=== PATIENT | female | born 1990 | race Caucasian/White ===

== ENCOUNTER 2017-10-30 13:32 | Emergency (ER) | payer BC, MEDICAID ==
[~2017-10-30] VITALS: Ht 167.6 cm; Wt 59.0 kg
[2017-10-30 13:32] VITALS: BP_SYST 125
[~2017-10-30 13:32] MED LIST: ALBU17AE13 IH; MONT10TA22 PO
[2017-10-30 14:54] LABS: BASOPHILS # (AUTO) 0.2 K/uL (0.0-0.2); BASOPHILS % (AUTO) 1.2 % (0.0-2.0); EOSINOPHILS # (AUTO) 0.1 K/uL (0.0-0.4); EOSINOPHILS % (AUTO) 0.5 % (0.0-4.0); HEMATOCRIT 45.2 % (36-48); HEMOGLOBIN 15.1 g/dL (12.0-16.0); LYMPHOCYTES # (AUTO) 1.3 K/uL (1.0-5.5); LYMPHOCYTES % (AUTO) 8.8 % (20.5-51.5); MEAN CORPUSCULAR HEMOGLOBIN 30 pg (27-31); MEAN CORPUSCULAR HGB CONC 33 % (32-36); MEAN CORPUSCULAR VOLUME 89 fL (79.0-98.0); MONOCYTES # (AUTO) 0.8 K/uL (0.0-1.0); MONOCYTES % (AUTO) 5.4 % (1.7-9.3); NEUTROPHILS # (AUTO) 11.9 K/uL (1.8-7.7); NEUTROPHILS % (AUTO) 84.1 % (40.0-70.0); PLATELET COUNT (AUTO) 284 K/uL (130-430); RED BLOOD CELL COUNT(AUTO) 5.09 MIL/uL (4.2-6.2); RED CELL DISTRIBUTION WIDTH 12.4 % (9.0-15.0); WHITE BLOOD COUNT (AUTO) 14.3 K/uL (4.8-10.8)
[2017-10-30 15:13] LABS: CREATININE 0.67 mg/dL (0.55-1.30); POTASSIUM 3.7 mmol/L (3.5-5.1)
--- NOTE | 2017-10-30 15:16 | NUR ---
Patient to ER bed 07 to gown for evaluation. Side rails up. will assume care.
--- NOTE | 2017-10-30 15:17 | NUR ---
Patient brought in by self complaining of left upper quadrant pain starting this morning. Describes the pain as intermittent and sharp 10/10 . Denies any nausea, vomiting and diarrhea. No other complaints/injuries per patient or as noted. Will continue to monitor
[2017-10-30 15:38] LABS: BILIRUBIN,URINE NEGATIVE (NEGATIVE); BLOOD, URINE NEGATIVE (NEGATIVE); CLARITY/URINE CLEAR (CLEAR); COLOR,URINE YELLOW (YELLOW); GLUCOSE,URINE NEGATIVE (NEGATIVE); KETONES,URINE NEGATIVE (NEGATIVE); LEUKOCYTE ESTERASE ,URINE NEGATIVE (NEGATIVE); NITRITE, URINE NEGATIVE (NEGATIVE); PH,URINE 8.5 (5.0-8.0); PROTEIN URINE NEGATIVE (NEGATIVE); UROBILINOGEN,URINE 0.2 (0.2-1.0)
[2017-10-30 15:38] LABS: ALBUMIN 4.3 g/dL (3.4-4.8); TOTAL BILIRUBIN 1.1 mg/dL (0.0-1.0)
--- NOTE | 2017-10-30 15:59 | NUR ---
ER at bedside examining patient.
[2017-10-30] MEDS ORDERED: MAG HYDROX/AL HYDROX/SIMETH 30 ML, LIDOCAINE VISCOUS 2% 15ML (PO) 10 ML, BELLADONNA ALK... PO ONE ×3 (16:00)
[2017-10-30 16:34] VITALS: BP_SYST 125
--- NOTE | 2017-10-30 16:34 | NUR ---
Patient given written and verbal discharge instructions and verbalizes understanding. ER MD discussed with patient the results and treatment provided. Patient in stable condition. ID arm band removed. No Rx given. Patient educated on pain management and to follow up with PMD in 2-3 days. Pain Scale 0/10 Opportunity for questions provided and answered.
== END 2017-10-30 16:34 | disposition home or self-care (01) ==
LOC: SED 13:32
DX: O26.891 Other specified pregnancy related conditions, first trimester (principal); R10.12 Left upper quadrant pain; R42 Dizziness and giddiness; J45.909 Unspecified asthma, uncomplicated; F17.200 Nicotine dependence, unspecified, uncomplicated; Z3A.01 Less than 8 weeks gestation of pregnancy; Z85.41 Personal history of malignant neoplasm of cervix uteri
CPT/HCPCS: 36415; 76801; 76817; 80053; 81003; 81025; 83690; 84702; 85025; 86900; 86901; 99285; J2001

== ENCOUNTER 2019-07-18 18:39 | Emergency (ER) | payer MEDICAID ==
[~2019-07-18] VITALS: Ht 167.6 cm; Wt 66.2 kg
[2019-07-18 19:05] VITALS: BP_SYST 101
--- NOTE | 2019-07-18 19:05 | NUR ---
Patient triaged and placed in waiting room. VSS and patient appears in no acute distress at this time. Accompanied by FAM MEMBER, awaiting available bed, and MD notified of need for MSE.
--- NOTE | 2019-07-18 19:48 | NUR ---
Patient to ER bed 2 to gown for evaluation. Side rails up. Report given to JAMSHID CLEVELAND RN(REGISTRY).
[2019-07-18] MEDS ORDERED: MORPHINE 4 MG/ML INJ. SYRINGE IM ONE (20:00)
--- NOTE | 2019-07-18 20:54 | NUR ---
SEEN AND EXAMINED BY DR. PATEL @ 2000. NEW ORDERS WRITTEN AND CARRIED OUT.
[2019-07-18 21:05] VITALS: BP_SYST 101
== END 2019-07-18 20:57 | disposition home or self-care (01) ==
LOC: SED 18:39
DX: S13.4XXA Sprain of ligaments of cervical spine, initial encounter (principal); S09.8XXA Other specified injuries of head, initial encounter; J45.909 Unspecified asthma, uncomplicated; F17.200 Nicotine dependence, unspecified, uncomplicated; W19.XXXA Unspecified fall, initial encounter; Y93.89 Activity, other specified; Y92.89 Other specified places as the place of occurrence of the external cause; Y99.8 Other external cause status
CPT/HCPCS: 96372; 99283; J2270

== ENCOUNTER 2021-10-07 21:17 | Emergency (ER) | payer MEDICAID ==
[~2021-10-07] VITALS: Ht 167.6 cm; Wt 63.5 kg
[2021-10-07 21:55] VITALS: BP_SYST 111
--- NOTE | 2021-10-07 22:02 | NUR ---
Patient triaged and placed in waiting room. VSS and patient appears in no acute distress at this time. Accompanied by FAMILY, awaiting available bed, and MD notified of need for MSE.
--- NOTE | 2021-10-07 22:22 | NUR ---
DR. MENJIVAR IN TRIAGE FOR MSE
--- NOTE | 2021-10-07 22:22 | NUR ---
Patient c/o left ear pain x3 days with serosanguineous drainage and pain. Patient also reports hearing changes including sound like she is underwater. She has pain with chewing. She denies any fever. She is tolerating food no nausea or vomiting. The onset of her ear pain was preceded by a viral illness like nasal congestion rhinorrhea and cough. Her has similar symptoms. Patient breathing easy, not in any distress.
[2021-10-07] MEDS ORDERED: HYDROcodone/ACETAMIN 10-325 MG TAB PO ONE (22:30)
[2021-10-07] MEDS ORDERED: IBUP-1969 PO (22:34)
[2021-10-07] MEDS ORDERED: CORTEARS LEFT EAR (22:34)
[2021-10-07 23:20] VITALS: BP_SYST 110
--- NOTE | 2021-10-07 23:20 | NUR ---
Patient given written and verbal discharge instructions and verbalizes understanding. ER MD discussed with patient the treatment provided. Patient in stable condition.Rx of Cortisporin ear drops and Ibuprofen tab sent to pharmacy of choice.Patient educated on pain management and to follow up with PMD. Pain Scale 5/10 Opportunity for questions provided and answered.
[2021-10-08] MEDS ORDERED: HYDR-3917 PO (04:12)
== END 2021-10-07 23:20 | disposition home or self-care (01) ==
LOC: SED 21:17
DX: H60.502 Unspecified acute noninfective otitis externa, left ear (principal); B34.9 Viral infection, unspecified; J45.909 Unspecified asthma, uncomplicated
CPT/HCPCS: 99282; 99283

== ENCOUNTER 2021-10-09 00:57 | Emergency (ER) | payer MEDICAID ==
[~2021-10-09] VITALS: Ht 167.6 cm; Wt 62.6 kg
[~2021-10-09 00:57] MED LIST changes: +CORTEARS LEFT EAR; +IBUP-1969 PO
[2021-10-09 01:18] VITALS: BP_SYST 114
[2021-10-09] MEDS ORDERED: NEOMYCIN/POLYMYX B/HYDROCORTISONE 10 ML OTIC SOLUTION OT ONE (01:45)
[2021-10-09] MEDS ORDERED: KETOROLAC TROMETHAMINE 60 MG/2 ML VIAL IM ONE ×2 (01:45→01:52)
[2021-10-09] MEDS ORDERED: NEOMYCIN/POLYMYX B/HYDROCORTISONE 10 ML EAR DROPS.SUSP OT ONE (01:51)
[2021-10-09] MEDS ORDERED: cefTRIAXone 1 GM VIAL ONE (01:55)
[2021-10-09] MEDS ORDERED: LIDOCAINE 1%, 20 ML MDV 20 ML ONE (01:57)
[2021-10-09] MEDS ORDERED: cefTRIAXone 1 GM in LIDOCAINE 1%, 20 ML MDV 2.1 ML IM ONE (02:00)
[2021-10-09] MEDS ORDERED: NAPR-690 PO (02:19)
[2021-10-09] MEDS ORDERED: AMOX-426 PO (02:19)
[2021-10-09 02:34] VITALS: BP_SYST 112
== END 2021-10-09 02:34 | disposition home or self-care (01) ==
LOC: SED 00:57
DX: H66.92 Otitis media, unspecified, left ear (principal); J45.909 Unspecified asthma, uncomplicated; Z79.899 Other long term (current) drug therapy
CPT/HCPCS: 93005; 96372; 99284; J0696; J1885; J2001